=== PATIENT | male | born 1990 | race Caucasian/White ===

== ENCOUNTER 2020-12-06 15:01 | Emergency (ER) | payer OTHER ==
[~2020-12-06] VITALS: Ht 167.6 cm; Wt 72.1 kg
[~2020-12-06 15:01] MED LIST: ACCU-CHEK COMB1 EACH MC; GLUCOSE TEST S1 EACH MC; METFORMIN HCL500 M4 PO
[2020-12-06 15:11] VITALS: Ht 167.6 cm; Wt 72.1 kg
[2020-12-06 16:58] LABS: BASOPHIL % 0.3 % (0.2-1.5); PLATELET COUNT 266 x10^3mcL (152-348); RED CELL DISTRIBUTION WIDTH 13.5 % (12.1-16.2)
[2020-12-06 17:01] LABS: CALCIUM 9.8 mg/dL (8.5-10.1); CARBON DIOXIDE 22.6 mmol/L (21-32); CHLORIDE SERUM 95 mmol/L (98-107); CREATININE SERUM 0.9 mg/dL (0.7-1.3); GFR1 > 60 mL/min; GLUCOSE SERUM 326 mg/dL (74-106); POTASSIUM SERUM 3.7 mmol/L (3.5-5.1); SODIUM SERUM 134 mmol/L (136-145)
[2020-12-06 17:05] LABS: ALBUMIN 4.1 g/dL (3.4-5.0); ALKALINE PHOSPHATASE 107 U/L (46-116); ALT/SGPT 74 U/L (16-63); AST/SGOT 38 U/L (15-37); BILIRUBIN TOTAL 0.6 mg/dL (0.20-1.00); LIPASE 174 IU/L (73-393)
[2020-12-06 17:07] LABS: TOTAL PROTEIN, SERUM 8.3 g/dL (6.4-8.2)
--- NOTE | 2020-12-06 17:14 | NUR ---
NO ABG NEEDED PER PT RN, PER DR STONE
[2020-12-06 18:39] VITALS: BP 145/70
== END 2020-12-06 18:39 | disposition home or self-care (01) ==
LOC: ED 15:01
PROVIDERS: Emergency Medicine
DX: E11.65 Type 2 diabetes mellitus with hyperglycemia (principal)
CPT/HCPCS: 82962; J2270; J7030

== ENCOUNTER 2020-12-08 11:57 | Emergency (ER) | payer OTHER ==
[~2020-12-08] VITALS: Ht 167.6 cm; Wt 72.1 kg
[2020-12-08 12:06] VITALS: Ht 167.6 cm; Wt 72.1 kg
[2020-12-08] MEDS ORDERED: MP PO (13:46)
[2020-12-08] MEDS ORDERED: ONDANSETRON4 M3 PO (13:46)
[2020-12-08 14:03] VITALS: BP 143/89
== END 2020-12-08 14:03 | disposition home or self-care (01) ==
LOC: ED 11:57
DX: R10.13 Epigastric pain (principal); R11.10 Vomiting, unspecified; E11.9 Type 2 diabetes mellitus without complications
CPT/HCPCS: J1630; Q0162

== ENCOUNTER 2020-12-09 20:56 | Emergency (ER) | payer OTHER ==
[~2020-12-09] VITALS: Ht 167.6 cm; Wt 71.2 kg
[~2020-12-09 20:56] MED LIST changes: +MP PO; +ONDANSETRON4 M3 PO
[2020-12-09 21:16] VITALS: BP 144/100; Ht 167.6 cm; Wt 71.2 kg
[2020-12-09 23:08] LABS: AMPHETAMINE QUAL UR NONE DETECTED (See below)
== END 2020-12-10 00:18 | disposition home or self-care (01) ==
LOC: ED 20:56
PROVIDERS: Specialist
DX: F12.988 Cannabis use, unspecified with other cannabis-induced disorder (principal); R11.10 Vomiting, unspecified; F19.20 Other psychoactive substance dependence, uncomplicated
CPT/HCPCS: 82962; Q0162